=== PATIENT | female | born 1985 | race Caucasian/White ===

== ENCOUNTER 2016-08-20 12:43 | Emergency (ER) | payer BC ==
[2016-08-20] MEDS ORDERED: Adenosine 6 MG/2 ML SDV ONE (13:13)
[2016-08-20] MEDS ORDERED: Diltiazem 25 MG/5 ML SDV IVPUSH ONE (13:15)
[2016-08-20] MEDS ORDERED: Sodium Chloride 0.9% 10 ML Syringe FLUSH PRN (13:17)
[2016-08-20] MEDS ORDERED: Sodium Chloride 0.9% 1,000 ML IV ONE (13:18)
[2016-08-20 13:52] LABS: CHLORIDE,CL 104 mmol/L (101-111); SODIUM,NA 138 mmol/L (135-145)
--- NOTE | 2016-08-20 13:57 | EDM.PDOC ---
ED HISTORY OF PRESENT ILLNESS - General Chief Complaint: Cardiovascular Problem Stated Complaint: HEART PALPITATIONS Time Seen by Provider: 08/20/16 13:15 Source of Information: Reports: Patient History Limitations: Reports: No limitations - History of Present Illness INITIAL COMMENTS - FREE TEXT/NARRATIVE: Pt states that she was having heart racing and palpitations. Arrived with heart rate of 256. A&Ox 3 Symptom Onset Date: 08/20/16 Symptom Onset Time: 10:00 Timing/Duration: Reports: Waxing/waning Severity: severe Location, General: Reports: chest Quality: Reports: Same as previous episode Improves with: Reports: None Worsens with: Reports: Movement Context, General: Reports: Activity Associated Symptoms (General): Reports: no other symptoms - Related Data Allergies/ADRs: Allergies Allergy/AdvReac Type Severity Reaction Status Date / Time sulfamethoxazole AdvReac Mild yeast Verified 08/20/16 14:14 [From Bactrim] infection trimethoprim [From Bactrim] AdvReac Mild yeast Verified 08/20/16 14:14 infection Home Meds: Home Meds ClonazePAM [KlonoPIN] 0.5 mg PO BID PRN 08/20/16 [History] Venlafaxine [Effexor XR] 37.5 mg PO DAILY 08/20/16 [History] ED ROS GENERAL - Review of Systems Review Of Systems: See Below Cardiovascular: Reports: Palpitations ED EXAM, GENERAL - Physical Exam Exam: See Below Exam Limited By: No limitations General Appearance: alert, WD/WN, no apparent distress Respiratory/Chest: no respiratory distress, lungs clear, normal breath sounds, no accessory muscle use, chest non-tender Cardiovascular: normal peripheral pulses, no edema, no gallop, no JVD, no murmur , no rub, tachycardia GI/Abdominal: normal bowel sounds, soft, non tender, no organomegaly, no distention, no abnormal bruit, no mass Course - Vital Signs Last Recorded V/S: Last Vital Signs Temp 99.1 F 08/20/16 12:50 Pulse 132 H 08/20/16 12:50 Resp 16 08/20/16 12:50 BP 126/77 08/20/16 12:50 Pulse Ox 100 08/20/16 12:50 - Orders/Labs/Meds Orders: Active Orders 24 hr Category Date Time Status EKG 12 Lead [EKG Documentation Completion] [RC] STAT Care 08/20/16 14:49 Active Sodium Chloride 0.9% [Saline Flush] Med 08/20/16 13:17 Active 10 ml FLUSH ASDIRECTED PRN Saline Lock Insert [OM.PC] Stat Oth 08/20/16 13:17 Ordered Medication Orders Sodium Chloride (Saline Flush) 10 ml FLUSH ASDIRECTED PRN PRN Reason: Keep Vein Open Last Admin: 08/20/16 13:24 Dose: 10 ml Labs: Laboratory Tests 08/20/16 08/20/16 08/20/16 Range/Units 13:25 13:25 13:25 WBC 8.8 (5.0-10.0) 10^3/uL RBC 4.80 (4.2-5.4) 10^6/uL Hgb 14.3 (12.0-16.0) g/dL Hct 42.3 (37.0-47.0) % MCV 88.1 (80-100) fL MCH 29.8 (27.0-34.0) pg MCHC 33.8 (33.0-35.0) g/dL Plt Count 270 (150-450) 10^3/uL Neut % (Auto) 65.0 (42.2-75.2) % Lymph % (Auto) 23.9 (20.5-50.1) % [place] % (Auto) 8.3 H (2-8) % Eos % (Auto) 2.5 (1.0-3.0) % Baso % (Auto) 0.3 (0.0-1.0) % Sodium 138 (135-145) mmol/L Potassium 3.9 (3.6-5.0) mmol/L Chloride 104 (101-111) mmol/L Carbon Dioxide 23.0 (21.0-31.0) mmol/L Anion Gap 14.9 BUN 11 (7-18) mg/dL Creatinine 0.8 (0.6-1.3) mg/dL Est Cr Clr Drug Dosing TNP Estimated GFR (MDRD) > 60 Glucose 87 (74-105) mg/dL Calcium 9.0 (8.4-10.2) mg/dl Creatine Kinase 88 (26-174) IU/L Creatine Kinase Index 1.8 (0-2.4) % CK-MB (CK-2) 1.60 (0.4-4.7) ng/mL Troponin I < 0.02 (0.00-0.02) ng/ml Meds: Medications Generic Name Dose Route Start Last Admin Trade Name Freq PRN Reason Stop Dose Admin Sodium Chloride 10 ml 08/20/16 13:17 08/20/16 13:24 Saline Flush FLUSH 10 ml ASDIRECTED PRN Administration Keep Vein Open Discontinued Medications Generic Name Dose Route Start Last Admin Trade Name Freq PRN Reason Stop Dose Admin Adenosine Confirm 08/20/16 13:13 08/20/16 13:22 Adenocard Administered 08/20/16 13:14 Not Given Dose 6 mg .ROUTE .STK-MED ONE Diltiazem HCl 20 mg 08/20/16 13:15 08/20/16 13:23 Diltiazem IVPUSH 08/20/16 13:16 20 mg ONETIME ONE Administration Sodium Chloride 1,000 mls @ 999 mls/hr 08/20/16 13:18 08/20/16 13:23 Normal Saline IV 08/20/16 14:18 999 mls/hr ONETIME ONE Administration - Re-Assessments/Exams Free Text/Narrative Re-Assessment/Exam: 08/20/16 14:[address] Israel, Cardiology at [facility], about patient's rapid heart rate and request for transfer for continual care. States to send over all EKGs and he will review and return call. Return call from Dr. Israel who is concerned that pt may not have a sinus rhythm and there may be an underlining arrythmia. States that pt may be sent to [facility] or can be given adenosine and if she converts to NSR then she can be discharged home and follow up with cardiology outpatient. Presented plan with pt and she would rather go to [facility] with out having the adenosine administration. Informed One call and Dr. Puente accepted. Departure - Departure Time of Disposition: 15:50 Disposition: DC/Tfer to Acute Hospital 02 Reason for Transfer *Q: Primary PCI Indicated Condition: good Clinical Impression: Paroxysmal supraventricular tachycardia Instructions: Paroxysmal Supraventricular Tachycardia Forms: ED Department Discharge, Interfacility Transfer EMTALA - My Orders Last 24 Hours: My Active Orders 08/20/16 13:17 Sodium Chloride 0.9% [Saline Flush] 10 ml FLUSH ASDIRECTED PRN Saline Lock Insert [OM.PC] Stat 08/20/16 14:49 EKG 12 Lead [EKG Documentation Completion] [RC] STAT - Assessment/Plan Last 24 Hours: My Active Orders 08/20/16 13:17 Sodium Chloride 0.9% [Saline Flush] 10 ml FLUSH ASDIRECTED PRN Saline Lock Insert [OM.PC] Stat 08/20/16 14:49 EKG 12 Lead [EKG Documentation Completion] [RC] STAT
[2016-08-20 14:08] VITALS: BP 126/77
--- NOTE | 2016-10-12 12:08 | EKG ---
08/20/2016 - LUIS ARMANDO STRANGE VIOLET - TIME: 1306 hours. EKG is supraventricular tachycardia with a rate of 251. IMPRESSION: Abnormal EKG compatible with supraventricular tachycardia with rapid response. [facility] /[id number]
--- NOTE | 2016-10-12 12:08 | EKG ---
08/20/2016 - LUIS ARMANDO STRANGE VIOLET - TIME: 1259 hours. EKG is atrial flutter with a rate of 132, axis is within normal limits and ventricular rate is now better when compared to previous EKG. [facility] /[id number]
== END 2016-08-20 16:20 ==
LOC: DL.ED 12:43
DX: I47.1 Supraventricular tachycardia (principal); Z88.2 Allergy status to sulfonamides; Z88.8 Allergy status to other drugs, medicaments and biological substances
CPT/HCPCS: 36415; 71010; 80048; 82550; 82553; 84484; 85025; 93005; 96361; 96374; 99285; J7030; J7050; J3490